=== PATIENT | female | born 1970 | race Caucasian/White ===

== ENCOUNTER → 2025-01-21 14:21 | Outpatient (REF) | payer BC, SELFPAY | LOC: EMG 14:21 | PROVIDERS: ATTENDING PHYSICIAN Physician Assistant; FAMILY PHYSICIAN Family Medicine | DX: R20.0 Anesthesia of skin (principal); G56.03 Carpal tunnel syndrome, bilateral upper limbs | CPT/HCPCS: 95886; 95911 ==